=== PATIENT | male | born 1970 | race Caucasian/White ===

== ENCOUNTER 2016-10-29 15:42 | Emergency (ER) | payer OTHER ==
[~2016-10-29] VITALS: Ht 175.3 cm; Wt 84.4 kg
[~2016-10-29 15:42] MED LIST: BENZTROPINE MESY2 MG PO; CLEOCIN HCL150 MG PO; GLUCOPHAGE1000 MG PO; IBUPROFEN 600600 M1 PO; RISPERDAL 1 MG T1 MG PO; TRICOR145 MG PO; VALPROIC ACID250 MG PO; XANAX 0.25 MG0.25 MG PO; ZOCOR20 MG PO
[2016-10-29 15:47] VITALS: BP 118/67
[2016-10-29] MEDS ORDERED: NAPROSYN500 MG PO (15:58)
== END 2016-10-29 16:25 | disposition home or self-care (01) ==
LOC: ER 15:42
DX: S46.912A Strain of unspecified muscle, fascia and tendon at shoulder and upper arm level, left arm, initial encounter (principal); M70.812 Other soft tissue disorders related to use, overuse and pressure, left shoulder; E78.5 Hyperlipidemia, unspecified; F90.9 Attention-deficit hyperactivity disorder, unspecified type; F39 Unspecified mood [affective] disorder; E11.9 Type 2 diabetes mellitus without complications; Z88.0 Allergy status to penicillin; W94.12XA Exposure to other prolonged low air pressure, initial encounter; Y93.89 Activity, other specified; Y92.89 Other specified places as the place of occurrence of the external cause; Y99.9 Unspecified external cause status